=== PATIENT | male | born 1975 | race Asian ===

== ENCOUNTER 2018-04-19 13:35 | Emergency (ER) | payer SELFPAY ==
[~2018-04-19] VITALS: Ht 165.1 cm; Wt 66.7 kg
[2018-04-19 13:44] VITALS: BP_SYST 123
[2018-04-19 16:17] VITALS: BP_SYST 120
== END 2018-04-19 16:17 | disposition home or self-care (01) ==
LOC: SED 13:35
DX: L30.9 Dermatitis, unspecified (principal); R03.0 Elevated blood-pressure reading, without diagnosis of hypertension; Z87.891 Personal history of nicotine dependence
CPT/HCPCS: 99283